=== PATIENT | male | born 1965 | race Caucasian/White ===

== ENCOUNTER 2022-04-07 01:02 | Emergency (ER) | payer OTHER | END 2022-04-07 03:48 | disposition home or self-care (01) | LOC: FER 01:02 | DX: M54.50 Low back pain, unspecified (principal); M25.532 Pain in left wrist; I10 Essential (primary) hypertension; F17.200 Nicotine dependence, unspecified, uncomplicated; Z79.899 Other long term (current) drug therapy; Z88.8 Allergy status to other drugs, medicaments and biological substances; Z88.5 Allergy status to narcotic agent; W01.0XXA Fall on same level from slipping, tripping and stumbling without subsequent striking against object, initial encounter; Y92.89 Other specified places as the place of occurrence of the external cause; Y99.0 Civilian activity done for income or pay | CPT/HCPCS: 72131; 73110; 96372; J1030; J1885 ==